=== PATIENT | male | born 1965 | race Caucasian/White ===

== ENCOUNTER 2016-03-28 22:46 | Emergency (ER) ==
[2016-03-28] MEDS ORDERED: ATIVAN IV ONE (23:07)
[2016-03-28] MEDS ORDERED: TORADOL IV ONE (23:08)
[2016-03-28] MEDS ORDERED: FLEXERIL PO ONE (23:08)
[2016-03-28] MEDS ORDERED: CATAPRES PO ONE (23:08)
--- NOTE | 2016-03-28 23:10 | PROVIDER DOCUMENTATION ---
HPI-Chest Pain - General Source: patient <Musa Aldrich - Last Filed: 03/28/16 23:10> <Maral Rivera - Last Filed: 03/29/16 12:56> - General Chief Complaint: Psych Stated Complaint: PSYCH Time Seen by Provider: 03/28/16 23:00 Allergies/Adverse Reactions: Patient Allergies Allergy/AdvReac Type Severity Reaction Status Date / Time Penicillins Allergy HIVES Verified 03/28/16 22:55 - History of Present Illness-CP Nature of Presenting Problem: 50 YOWM PRESENTS TO ED WITH C/O PT STATES C/P AND STATES HE IS DONE, READY TO END IT ALL. PT STATES HE LOST HIS HOUSE, STATES HIS FATHER BEFORE [place], STATES HE LOST HIS THE DAY OF THE . STATES HE DOES METH ABOUT EVERY 3 DAYS. PT STATES HE WANTS TO DRIVE TO THE BRIDGE AND JUMP. (Musa Aldrich) Review of Systems - Adult - REVIEW OF SYSTEMS - ADULT Constitutional: denies: chills, fever Eyes: reports: no symptoms reported Ears, Nose, Mouth & Throat: reports: no symptoms reported Cardiovascular: reports: chest pain. denies: palpitations, syncope Respiratory: denies: cough, shortness of breath, wheezing Gastrointestinal: denies: abdominal pain, diarrhea, nausea, vomiting Genitourinary: reports: no symptoms reported Musculoskeletal: denies: back pain, neck pain Integumentary: reports: no symptoms reported Neurological: denies: dizziness/vertigo, headache/migraines, syncope Psychiatric: reports: no symptoms reported Endocrine: reports: no symptoms reported Hematologic/Lymphatic: reports: no symptoms reported Allergic/Immunologic: reports: no symptoms reported All Other Systems: Reviewed and Negative <Musa Aldrich - Last Filed: 03/28/16 23:10> Past History - Adult - PAST MEDICAL HISTORY-ADULT Cardiovascular: reports: HTN - PRIOR SURGERIES/PROCEDURES Surgical/Procedure History: reports: none - PRIOR HOSPITALIZATIONS Prior Hospitalizations: reports: none - IMMUNIZATION STATUS Childhood Immunizations: See Nurse Assessment Flu Vaccine: See Nurse Assessment - FAMILY HISTORY Family History: reviewed, not pertinent - SOCIAL HISTORY Smoking: cigarettes, greater than 1 pack/day Provider spent 3-5 mins advising pt. on dangers of tobacco.: Discussed manners to quit use, and f/u contacts for add'l counseling. Living Situation: alone <Musa Aldrich - Last Filed: 03/28/16 23:10> Physical Exam-General - CONSTITUTIONAL General Appearance: alert, moderate distress - EYES Eyes: PERRL/EOMI, pink conjunctivae - HEAD, EARS, NOSE, MOUTH & THROAT HENMT: normocephalic/atraumatic, moist mucous membranes - NECK Neck: non-tender, full range of motion, supple - RESPIRATORY Respiratory: chest non-tender, lungs clear, normal breath sounds - CARDIOVASCULAR Cardiovascular: normal peripheral pulses, regular rate, rhythm - GASTROINTESTINAL (ABDOMEN) Abdominal Exam: normal bowel sounds, non tender, soft - LYMPHATIC Lymphatic: no adenopathy - MUSCULOSKELETAL Back Exam: normal inspection, no CVA tenderness, no vertebral tenderness Extremity: normal range of motion, non-tender - SKIN Integumentary: normal color, normal turgor, warm/dry - NEUROLOGIC Neurologic: grossly normal - PSYCHIATRIC Psych/Mental Status: depressed affect <Musa Aldrich - Last Filed: 03/28/16 23:10> Progress - EKG 1 Time of EKG reading by physician:: 23:06 EKG Read and Signed by:: Edwardo Rothman EKG Interpretation (*Must complete 3 of following elements*): Normal Rate: 84 Rhythm: NSR [place]: normal QRS: normal [place] Interval: normal ST Wave: normal <Musa Aldrich - Last Filed: 03/28/16 23:10> Departure <Musa Aldrich - Last Filed: 03/28/16 23:10> - Departure Time of Disposition Order: 12:50 ([place] ) Certified Medical Emergency: Emergent <Maral Rivera - Last Filed: 03/29/16 12:56> - Departure DIAGNOSIS: Suicidal ideation Disposition: [facility] Condition: Stable Additional Instructions: ED Follow Up Instructions: You have been treated by a care provider in the Emergency Department. These instructions are being provided to you so you can have an understanding of how to care for yourself upon discharge. Upon discharge from the Emergency Department, you are responsible for making arrangements for follow-up care by a physician of your choice. Take all prescribed medications as directed. Return to the Emergency Department immediately for any new or worsening symptoms. You may call the Physician Referral phone number at [phone] to obtain a list of Physicians who are taking new patients. Attestation - Scribe Verification/Attestation Scribe:: Musa Aldrich Acting as Scribe for:: Edwardo Rothman Scribe documention review:: This chart was documented by a scribe and accurately reflects the service the provider performed and the decisions made by the provider. <Musa Aldrcih - Last Filed: 03/28/16 23:10> - Scribe Verification/Attestation Scribe:: Maral Rivera Acting as Scribe for:: Pablo Mayes Scribe documention review:: This chart was documented by a scribe and accurately reflects the service the provider performed and the decisions made by the provider. <Maral Rivera - Last Filed: 03/29/16 12:56> Physician Attestation
[2016-03-28 23:38] LABS: MANUAL DIFF NEEDED? NO
[2016-03-28 23:39] LABS: URINE CULTURE PL NEEDED? NO; URINE SOURCE VOIDED
[2016-03-28 23:45] LABS: BASO% 0.5 % (0.0-0.8); EOS# 0.24 X1000 (0.0-0.7); EOS% 2.8 % (0.0-10.0); HEMATOCRIT 48.5 % (42.0-52.0); HEMOGLOBIN 16.6 g/dL (14.0-18.0); IMM GRAN# 0.03 X1000 (0.0-0.04); IMM GRAN% 0.4 % (0.0-0.5); LYMPH# 2.24 X1000 (1.2-3.4); LYMPH% 26.4 % (20.5-51.1); MCH 27.9 PG (27-31); MCHC 34.2 g/dL (33-37); MCV 81.5 FL (81-99); MONO# 0.61 X1000 (0.11-0.59); MONO% 7.2 % (1.7-9.3); MPV 10.7 FL (7.4-10.4); NEUT% 62.7 % (42.2-75.2); PLT 334 X1000 (130-400); RBC 5.95 XMIL (4.7-6.1)
[2016-03-28 23:51] LABS: UR AMPHETAMINES QUAL PRESUMPTIVE POSITIVE (NONE DETECT); UR BARBITUATES QUAL NONE DETECTED (NONE DETECT); UR BENZODIAZEPIN QUAL NONE DETECTED (NONE DETECT); UR CANNABINOIDS QUAL NONE DETECTED (NONE DETECT); UR COCAINE QUAL NONE DETECTED (NONE DETECT); UR MDMA QUAL NONE DETECTED (NONE DETECT); UR METHADONE QUAL NONE DETECTED (NONE DETECT); UR METHAMPHETAMINE QUAL PRESUMPTIVE POSITIVE (NONE DETECT); UR OPIATES QUAL NONE DETECTED (NONE DETECT); UR OXYCODONE QUAL NONE DETECTED (NONE DETECT); UR PCP QUAL NONE DETECTED (NONE DETECT); UR TCA QUAL NONE DETECTED (NONE DETECT)
[2016-03-28 23:52] LABS: BILIRUBIN URINE NEGATIVE (NEGATIVE); BLOOD URINE NEGATIVE (NEGATIVE); CLARITY CLEAR (CLEAR); COLOR STRAW; GLUCOSE URINE NEGATIVE (NEGATIVE); LEUKOCYTES URINE NEGATIVE (NEGATIVE); NITRITE URINE NEGATIVE (NEGATIVE); PROTEIN URINE NEGATIVE (NEGATIVE); SP GRAVITY URINE 1.005; UROBILINOGEN URINE NORMAL
[2016-03-29 00:07] LABS: AGAP 14; ALBUMIN 4.7 g/dL (3.5-5.0); ALKALINE PHOSPHATASE 183 U/L (32-122); BUN 9 mg/dL (8-22); CALCIUM 10.1 mg/dL (8.8-10.2); CHLORIDE 96 mmol/L (98-107); COSMO 269; GOT 28 U/L (10-34); GPT 18 U/L (10-44); POTASSIUM 3.5 mmol/L (3.5-5.1); SODIUM 135 mmol/L (136-145); TCO2 26 mmol/L (25-35); TOTAL PROTEIN 8.4 g/dL (6.3-8.3)
[2016-03-29 00:18] LABS: FREE T4 1.44 ng/dL (0.93-1.70)
[2016-03-29 00:29] LABS: ACETAMINOPHEN < 1.2 ug/mL (10-30)
[2016-03-29 00:38] LABS: URINE EPITHELIAL CELLS <10 /HPF (<10); URINE WBC <10 /HPF (<10)
--- NOTE | 2016-03-29 05:32 | EKG Report ---
Test Performed on : 03/28/2016 11:05:17 PM Test Reason : ER12 Blood Pressure : / mmHG Vent. Rate : 084 BPM Atrial Rate : 084 BPM P-R Int : 130 ms QRS Dur : 076 ms QT Int : 382 ms P-R-T Axes : 004 -20 056 degrees QTc Int : 451 ms Normal sinus rhythm. Normal ECG When compared with ECG of 13-OCT-2015 17:39, ST no longer elevated in Inferior leads Unconfirmed Result
[2016-03-29] MEDS ORDERED: CATAPRES PO ONE (11:25)
[2016-03-29 12:26] VITALS: BP 154/93
== END 2016-03-29 13:25 ==
LOC: P.ED 22:46
DX: R45.851 Suicidal ideations (principal); R07.9 Chest pain, unspecified; I10 Essential (primary) hypertension; F17.210 Nicotine dependence, cigarettes, uncomplicated; Z71.6 Tobacco abuse counseling
CPT/HCPCS: 80053; 81001; 82607; 84439; 84443; 84484; 85025; 93005; 96374; 96375; G0480; J1885; J2060